=== PATIENT | female | born 1940 | race Caucasian/White ===

== ENCOUNTER → 2016-09-04 | Outpatient (CLI) | payer OTHER ==
--- NOTE | 2016-09-04 15:14 | MA ---
Bilateral Screening Digital Mammograms With iCAD Clinical Indications: Routine screening mammograms. Previous left breast carcinoma. Technique: Standard digital cephalocaudal and mediolateral oblique projections were obtained. This examination was processed by the iCAD computer-aided detection system. Comparison: 2015, 2013, 2012. Breast density: Type C. Findings: Computer-aided detection was reviewed. No suspicious cluster of microcalcifications, new d ominant densities or new architectural distortion. Architectural distortion the left breast from prev ious lumpectomy and radiation therapy. Impression: 1. ACR BI-RADS 2: Benign findings.. 2. No mammographic evidence of malignancy. Recommendation: 1. If physical exam is negative, recommend annual mammograms with next mammogram August 2017. 2. Dense mammographic pattern limits the sensitivity of mammography in this patient. If there is a cl inically palpable abnormality, recommend additional imaging with ultrasound, if clinically indicated. On License Of [facility] will send a result letter to the patient. Negative mammography should not preclude additional workup of a clinically suspicious finding. The patient's information is entered into a reminder system with a target due date for her next mammo gram.
== END ==
LOC: BRMIMAGING 13:38
DX: Z12.31 Encounter for screening mammogram for malignant neoplasm of breast (principal); Z85.3 Personal history of malignant neoplasm of breast
CPT/HCPCS: G0202

== ENCOUNTER → 2017-08-07 | Outpatient (CLI) | payer OTHER | LOC: FIMAGING 16:00 | PROVIDERS: ATTEND Emergency Medicine | DX: M25.551 Pain in right hip (principal) ==

== ENCOUNTER → 2017-09-06 | Outpatient (CLI) | payer OTHER | LOC: BRMIMAGING 13:34 | PROVIDERS: ATTEND Internal Medicine | DX: Z12.31 Encounter for screening mammogram for malignant neoplasm of breast (principal); Z85.3 Personal history of malignant neoplasm of breast ==

== ENCOUNTER → 2017-09-25 | Outpatient (CLI) | payer OTHER | LOC: FIMAGING 10:01 | PROVIDERS: ATTEND Internal Medicine Hematology & Oncology | DX: Z12.89 Encounter for screening for malignant neoplasm of other sites (principal); M54.9 Dorsalgia, unspecified; Z85.3 Personal history of malignant neoplasm of breast | CPT/HCPCS: 78306; A9503 ==

== ENCOUNTER → 2018-01-08 | Outpatient (CLI) | payer OTHER | LOC: FIMAGING 10:06 | PROVIDERS: ATTEND Physician Assistant | DX: M51.16 Intervertebral disc disorders with radiculopathy, lumbar region (principal) ==

== ENCOUNTER → 2018-05-28 | Outpatient (CLI) | payer OTHER | LOC: FIMAGING 18:12 | PROVIDERS: ATTEND Neurological Surgery | DX: M51.16 Intervertebral disc disorders with radiculopathy, lumbar region (principal); M46.96 Unspecified inflammatory spondylopathy, lumbar region; M48.061 Spinal stenosis, lumbar region without neurogenic claudication; M51.27 Other intervertebral disc displacement, lumbosacral region; G95.29 Other cord compression ==

== ENCOUNTER → 2018-09-24 | Outpatient (CLI) | payer OTHER | LOC: BRMIMAGING 08:15 | PROVIDERS: ATTEND Internal Medicine | DX: Z12.31 Encounter for screening mammogram for malignant neoplasm of breast (principal) ==

== ENCOUNTER → 2018-11-28 | Outpatient (CLI) | payer OTHER | LOC: FIMAGING 12:04 | PROVIDERS: ATTEND Internal Medicine | DX: R91.8 Other nonspecific abnormal finding of lung field (principal); I51.7 Cardiomegaly; R06.02 Shortness of breath ==

== ENCOUNTER → 2018-12-02 | Outpatient (CLI) | payer OTHER ==
[~2018-12-02] MED LIST: IOPAMIDOL (ISOVUE 370) 100 ML BTL IV ONE
== END ==
LOC: CIMAGING 11:28
PROVIDERS: ATTEND Internal Medicine
DX: R06.02 Shortness of breath (principal); J90 Pleural effusion, not elsewhere classified; I50.9 Heart failure, unspecified; E03.9 Hypothyroidism, unspecified; I25.10 Atherosclerotic heart disease of native coronary artery without angina pectoris; K44.9 Diaphragmatic hernia without obstruction or gangrene; K76.9 Liver disease, unspecified
CPT/HCPCS: 71275; Q9967; 82565-PO

== ENCOUNTER 2018-12-05 14:41 | Inpatient (IN) | payer OTHER ==
--- NOTE | 2018-12-05 15:18 | EDPHY ---
H & P Time Seen by Provider: 12/05/18 14:44 HPI/ROS: Chief complaint. Shortness of breath, abnormal echocardiogram HPI. The patient is a 78-year-old female who has had gradual onset of shortness of breath over the past month. She at times short of breath at rest. She has dyspnea on exertion. Denies chest pain. She complains of some fullness in the upper abdomen especially at night. Denies fever or cough. No unusual leg pain or swelling. She had a CT a on December 02 which showed pleural effusion, cardiomegaly, CHF, coronary artery disease. She had an echocardiogram the by Cardiology today which showed an ejection fraction 25% and apparently mitral regurgitation. She was sent to the emergency department with the plan of admission, Lasix over the weekend for diuresis and then heart catheterization next week. ROS 10 systems were reviewed and negative with the exception of the elements mentioned in the history of present illness Past Medical/Surgical History: Past medical history hypothyroid, dyslipidemia, hiatal hernia, breast cancer, diverticulosis Social History: , nonsmoker, no alcohol Smoking Status: Former smoker Physical Exam: General Appearance: Alert pleasant well-developed female mild distress. Vital signs are stable Eyes: Pupils equal and round no pallor or injection. ENT, Mouth: Mucous membranes are moist. Respiratory: There are no retractions, lungs are clear to auscultation. I do not hear wheezes, rales or rhonchi Cardiovascular: Regular rate and rhythm. Gastrointestinal: Abdomen is soft and nontender, no masses, bowel sounds normal. Neurological: Awake and alert, sensory and motor exams grossly normal. Skin: Warm and dry, no rashes. Musculoskeletal: Neck is supple nontender. Extremities symmetrical, full range of motion. Psychiatric: Patient is oriented X 3, there is no agitation. Constitutional: Initial Vital Signs Temperature (C) 36.6 C 12/05/18 14:44 Heart Rate 91 12/05/18 14:44 Respiratory Rate 16 12/05/18 14:44 Blood Pressure 133/93 H 12/05/18 14:44 O2 Sat (%) 95 12/05/18 14:44 O2 Delivery Mode Room Air Allergies/Adverse Reactions: povidone-iodine [From Betadine] Allergy (Verified 10/07/15 09:40) Rash soap [From Betadine] Allergy (Verified 10/07/15 09:40) Rash BLUE CHLORAPREP Allergy (Mild, Uncoded 02/16/10 15:18) Rash ENVIRONMENTAL Allergy (Mild, Uncoded 02/16/10 14:58) SNEEZING/NASAL CONGESTION Home Medications: Medication Instructions Recorded Aspirin [Aspirin 81mg (*)] 81 mg PO DAILY 10/07/15 Calcium Carb W/Vit D [Calcium Carb 500 mg PO HS 10/07/15 W/Vit D 500/200 (*)] Herbals/Supplements -Info Only 1 ea PO DAILY 10/07/15 [place]-3 Fatty Acids [Fish Oil 1000 1,000 mg PO HS 10/07/15 mg (*)] Atorvastatin Calcium [Lipitor 10 10 mg PO HS 05/30/18 mg (*)] Vit A/Vit C/Vit E/Zinc/Copper 1 each PO BID 05/30/18 [Preservision Tablet] Furosemide [Lasix 20 MG (*)] 20 mg PO DAILY 12/05/18 LORazepam [Ativan (*)] 0.5 mg PO HS PRN 12/05/18 Levothyroxine [Synthroid 25 mcg 12.5 mcg PO SA@0600 12/05/18 (*)] Levothyroxine [Synthroid 25 mcg 25 mcg PO SUMOTUWETHFR@0600 12/05/18 (*)] Potassium Cl [Klor-Con 20 meq (*)] 20 meq PO DAILY 12/05/18 Ranitidine HCl 150 mg PO HS PRN 12/05/18 Venlafaxine Xr [Effexor Xr] 150 mg PO DAILY 12/05/18 Medical Decision Making - Diagnostics EKG Interpretation: EKG interpreted by me shows normal sinus rhythm normal interval. LVH by voltage criteria, lateral T-wave inversion. No significant ST elevation or depression. No arrhythmia. The rate is 81 Imaging Results: Imaging Impressions Chest X-Ray 12/05/18 15:12 Impression: 1. Decrease in fluid overload/CHF pattern. 2. Prominent interstitial markings left mid lung laterally probably related to some interstitial lung disease. One-view chest x-ray interpreted by me as is consistent with congestive heart failure Procedures: IV normal saline, monitor ED Course/Re-evaluation: Patient remains stable. Patient and I discussed imaging lab EKG findings. We discussed treatment plan including recommendation for admission. She expresses understanding and agreement I consulted discussed case with hospitalist, who agrees to the admission. Patient is also seen by Dr. Gallardo for cardiology in the ED Differential Diagnosis: Patient has CHF. She has abnormal echocardiogram with decreased ejection fraction. No evidence for acute coronary syndrome. - Data Points Medications Given: Carvedilol (Coreg) 3.125 mg PO BIDMEAL [facility] Stop: 06/03/19 17:59 Last Admin: 12/05/18 18:31 Dose: 3.125 mg Furosemide (Lasix Injection) 40 mg IVP BID@0900,1500 [facility] Stop: 06/03/19 16:44 Last Admin: 12/05/18 17:03 Dose: 40 mg Lisinopril (Zestril) 10 mg PO DAILY [facility] Stop: 06/03/19 15:59 Last Admin: 12/05/18 17:03 Dose: 10 mg Spironolactone (Aldactone) 25 mg PO DAILY [facility] Stop: 06/03/19 15:59 Last Admin: 12/05/18 17:03 Dose: 25 mg Departure - Departure Disposition: [facility] Inpatient Acute Clinical Impression: Congestive heart failure Qualifiers: Heart failure type: unspecified Heart failure chronicity: unspecified Qualified Code(s): I50.9 - Heart failure, unspecified Condition: Fair
--- NOTE | 2018-12-05 15:21 | CPEKG ---
Test Reason : OPEN Blood Pressure : / mmHG Vent. Rate : 081 BPM Atrial Rate : 081 BPM P-R Int : 154 ms QRS Dur : 089 ms QT Int : 399 ms P-R-T Axes : 035 -25 -43 degrees QTc Int : 464 ms Sinus rhythm Probable left atrial enlargement LVH with secondary repolarization abnormality Confirmed by Stanley Perkins ([id number]) on 12/05/2018 3:20:34 PM Referred By: STANLEY PERKINS Confirmed By:Stanley Perkins
--- NOTE | 2018-12-05 15:27 | ECHO ---
[email or web address] [address] [address] Main: [phone] Echocardiography Examination Transthoracic Name: JOHNNY BELLE MR#: [id number] Study Date: 12/05/2018 Study Time: 01:56 PM Date of : 1940 Age: 78 year(s) Height: 139.7 cm (55 in.) Weight: 54.89 kg (121 lb.) BSA: 1.42 m2 Gender: Female Examination: Echo Contrast: Image Quality: Adequate Rhythm: Normal sinus rhythm Heart Rate: 89 bpm BP: / Indication: CHF Procedure Staff Referring Physician: Slitter Operator: Yolis Linares [facility] Reading Physician: Rj Gallardo MD Requesting Provider: Ordering Physician: Petra Marin Indication: CHF Measurements Chambers AV/MV Label Value Normal Value Label Value Normal Value LVOTd 2 cm (1.8cm - 2cm) AR PHT 0.55 s LVOT VTI 12.2 cm (18cm - 22cm) AR PHT 554 ms LVDd, 2D 4.8 cm (3.9cm - 5.3cm) AR Vena contracta 0.3 cm LVDs, 2D 4.3 cm (2.1cm - 4cm) AR Vmax 3.26 m/s IVSd, 2D 1 cm (0.6cm - 1.1cm) AV PGmean 4 mmHg LVPWd, 2D 0.9 cm BAKARI (VTI) 1.8 cm2 LVEF, BP 23 % (55% - 70%) MV E Vmax 1.12 m/s LVEF, 2D 25 % (54% - 74%) MV A Vmax 0.85 m/s LVOT PGmean 1 mmHg MV E/A 1.32 LVOT Vmean 0.42 m/s MV DT 137 ms RVDd, 2D 3.1 cm (1.9cm - 3.8cm) MV VTI 16.9 cm TAPSE 1.7 cm MVA D (continuity eq.) 2.3 cm2 LA Volume, BP 58 ml (22ml - 52ml) MV PGmax 3 mmHg LADs, 2D 4.1 cm (2.7cm - 3.8cm) MV PGmean 1 mmHg LAESV index, BP 40.8 ml/m2 MV Genoveva 3.4 cm RA Area 16 cm2 MR Vena Contracta 0.6 cm Additional Vessels MR Reg. Volume 59 ml Label Value Normal Value MR Reg. Fraction 39 % AoAsc 3.2 cm MR Vmax 4.74 m/s Patient: JOHNNY BELLE Study Date: 12/05/2018 Page 1 of 3 01:56 PM AoRoot, 2D 3.3 cm (1.4cm - 2.6cm) MR VTI 143 cm MR (ERO) 0.41 cm2 MR PISA Radius 0.9 cm MR PISA Alias V. 38.5 cm/s TV/PV Label Value Normal Value RA Pressure 5 mmHg RVSP 39 mmHg TR Pmax 34 mmHg TR Vmax 2.91 m/s PV PGmax 1 mmHg PV Vmax, Caliper 0.58 m/s (0.6m/s - 0.9m/s) Conclusions Left Ventricle: CONCLUSIONS:1)Severe reduced LV systolic function with a LVEF of 23% and global hypokinesis.2)Moderate to severe diastolic dysfunction noted.3)Low normal RV systolic function noted.4)Moderate left atrial enlargement noted.5)Aortic valve sclerosis without . Mild to moderate AI noted.6)Severe MR without MV prolapse. Mild MAC and MV leaflet thickening noted.7)Moderate TR with upper limits of normal PA pressures (PAS 39mmHg). Findings Left Ventricle: CONCLUSIONS: 1)Severe reduced LV systolic function with a LVEF of 23% and global hypokinesis. 2)Moderate to severe diastolic dysfunction noted. 3)Low normal RV systolic function noted. 4)Moderate left atrial enlargement noted. 5)Aortic valve sclerosis without . Mild to moderate AI noted. 6)Severe MR without MV prolapse. Mild MAC and MV leaflet thickening noted. 7)Moderate TR with upper limits of normal PA pressures (PAS 39mmHg). EF evaluated by EF (biplane Lomeli's). The ejection fraction, measured by Simpsons method, is 23 %. Left ventricle wall thickness is normal. Global hypokinesis. Grade III Diastolic Dysfunction. There is severe diffuse hypokinesis. Right Ventricle: Normal size right ventricle. Right ventricular systolic function is at the lower limits of normal. Left Atrium: The left atrium is moderately dilated. Right Atrium: The right atrium is borderline dilated. Mitral Valve: Severe mitral regurgitation. No mitral valve stenosis. There is moderate mitral thickening. Aortic Valve: The aortic valve is structurally normal and trileaflet. Mild to moderate aortic regurgitation is present. There is no aortic stenosis. There is aortic sclerosis present. Tricuspid Valve: Moderate tricuspid regurgitation. No tricuspid valve stenosis. Right Ventricular systolic pressure is measured at 39 mmHg. Pulmonary artery pressure is mildly increased. Pulmonic Valve: Pulmonic leaflets are structurally normal. Mild pulmonic valve regurgitation is present. Aorta: The aortic root size in 2D measures 3.3 cm. The aortic root exhibits normal size. The ascending aorta measures 3.2 cm. Ascending aorta is normal in size. Patient: JOHNNY BELLE Study Date: 12/05/2018 Page 2 of 3 01:56 PM Aorta Measurements AoRoot, 2D is 3.3 cm. Pulmonary Vein: There is systolic flow reversal in the pulmonary vein. IVC: The inferior vena cava is normal in size and course. Pericardium: No pericardial effusion. Exam Details Procedure Ordered: Echo Procedure Status: Routine study Image Quality: Adequate Facility Location: Cardiac Echo 1 (No Signature Object) Patient: JOHNNY BELLE Study Date: 12/05/2018 Page 3 of 3 01:56 PM [id number]
[2018-12-05 15:43] LABS: PLATELET COUNT 239 10^3/uL (150-400)
--- NOTE | 2018-12-05 15:46 | PDGENHP ---
History and Physical - Chief Complaint Shortness of breath - History of Present Illness Patient is a very pleasant 78-year-old female with past medical history hyperlipidemia, hypothyroid, depression and occasional GERD who was referred to the emergency room from Cardiology Clinic. The patient has been experiencing progressive dyspnea on exertion for approximately the last month. She established care with Dr. Gallardo few weeks ago and about 7 days ago started on Lasix. Despite this she has had progressive shortness of breath. About a month ago she was able to ambulate about 100 ft before becoming dyspneic. This has progressed until now she can only take a few steps before becoming winded. An echocardiogram was obtained today that showed a left ventricular ejection fraction of 23%. She was instructed to come to the emergency room for admission and treatment of her CHF. She denies any lower extremity edema but does endorse orthopnea. She denied any chest pain, cough, fevers chills or other symptoms History Information - Allergies/Home Medication List Allergies/Adverse Reactions: povidone-iodine [From Betadine] Allergy (Verified 10/07/15 09:40) Rash soap [From Betadine] Allergy (Verified 10/07/15 09:40) Rash BLUE CHLORAPREP Allergy (Mild, Uncoded 02/16/10 15:18) Rash ENVIRONMENTAL Allergy (Mild, Uncoded 02/16/10 14:58) SNEEZING/NASAL CONGESTION Home Medications: Aspirin [Aspirin 81mg (*)] 81 mg PO DAILY 10/07/15 [Last Taken 10/06/15] Calcium Carb W/Vit D [Calcium Carb W/Vit D 500/200 (*)] 500 mg PO HS 10/07/15 [ Last Taken 10/06/15] Herbals/Supplements -Info Only 1 ea PO DAILY 10/07/15 [Last Taken Unknown] [place]-3 Fatty Acids [Fish Oil 1000 mg (*)] 1,000 mg PO HS 10/07/15 [Last Taken 10/06/15] Venlafaxine Xr [Effexor Xr 75MG (*)] 75 mg PO Q2D 10/07/15 [Last Taken 10/06/15] Atorvastatin Calcium [Lipitor 10 mg (*)] 10 mg PO HS 05/30/18 [Last Taken Unknown] Levothyroxine [Synthroid 50 mcg (*)] 50 mcg PO SUMOWETHFRSA@21 05/30/18 [Last Taken Unknown] Venlafaxine HCl [Venlafaxine HCl ER] 150 mg PO Q2D 05/30/18 [Last Taken Unknown] Vit A/Vit C/Vit E/Zinc/Copper [Preservision Tablet] 1 each PO BID 05/30/18 [ Last Taken Unknown] Ranitidine HCl PRN 06/06/18 [Last Taken Unknown] Lasix 12/05/18 [Last Taken Unknown] I have personally reviewed and updated: family history, medical history, social history, surgical history - Past Medical History Additional medical history: Hyperlipidemia, hypothyroid, GERD, depression - Surgical History Additional surgical history: lumpectomy,appy,adenoids, - Family History Positive for: non-pertinent - Social History Smoking Status: Former smoker Alcohol Use: Occasionally Review of Systems Review of Systems: ROS: 10pt was reviewed & negative except for what was stated in HPI & below Physical Exam Physical Exam: Temp Pulse Resp BP Pulse Ox 36.6 C 91 16 133/93 H 95 12/05/18 14:44 12/05/18 14:44 12/05/18 14:44 12/05/18 14:44 12/05/18 14:44 Constitutional: no apparent distress, appears nourished, not in pain Eyes: PERRL, anicteric sclera, EOMI Ears, Nose, Mouth, Throat: moist mucous membranes, hearing normal, ears appear normal, no oral mucosal ulcers Cardiovascular: regular rate and rhythym, no murmur, rub, or gallop, No edema Respiratory: no respiratory distress, no rales or rhonchi, clear to auscultation Gastrointestinal: normoactive bowel sounds, soft, non-tender abdomen, no palpable masses Genitourinary: no bladder fullness, no bladder tenderness Skin: warm, normal color, no rashes or abrasions, no fluctuance, no induration, No mottled Musculoskeletal: full muscle strength, no muscle tenderness, normal joint ROM, no joint effusions Psychiatric: interacting appropriately, not anxious, not encephalopathic, thought process linear Lymph, Heme, Immunologic: no cervical LAD, no supraclavicular LAD Lab Data & Imaging Review 12/05/18 15:30 12/05/18 15:30 WBC 7.11 10^3/uL (3.80-9.50) 12/05/18 15:30 RBC 4.17 10^6/uL (4.18-5.33) L 12/05/18 15:30 Hgb 13.6 g/dL (12.6-16.3) 12/05/18 15: Hct 41.5 % (38.0-47.0) 12/05/18 15:30 MCV 99.5 fL (81.5-99.8) 12/05/18 15: MCH 32.6 pg (27.9-34.1) 12/05/18 15: MCHC 32.8 g/dL (32.4-36.7) 12/05/18 15: RDW 13.6 % (11.5-15.2) 12/05/18 15: Plt Count 239 10^3/uL (150-400) 12/05/18 15: MPV 11.1 fL (8.7-11.7) 12/05/18 15:30 Neut % (Auto) 60.7 % (39.3-74.2) 12/05/18 15:30 Lymph % (Auto) 25.2 % (15.0-45.0) 12/05/18 15:30 [place] % (Auto) 11.1 % (4.5-13.0) 12/05/18 15: Eos % (Auto) 2.3 % (0.6-7.6) 12/05/18 15: Baso % (Auto) 0.6 % (0.3-1.7) 12/05/18 15: Nucleat RBC Rel Count 0.0 % (0.0-0.2) 12/05/18 15:30 Absolute Neuts (auto) 4.32 10^3/uL (1.70-6.50) 12/05/18 15:30 Absolute Lymphs (auto) 1.79 10^3/uL (1.00-3.00) 12/05/18 15:30 Absolute Monos (auto) 0.79 10^3/uL (0.30-0.80) 12/05/18 15:30 Absolute Eos (auto) 0.16 10^3/uL (0.03-0.40) 12/05/18 15:30 Absolute Basos (auto) 0.04 10^3/uL (0.02-0.10) 12/05/18 15:30 Absolute Nucleated RBC 0.00 10^3/uL (0-0.01) 12/05/18 15:30 Immature Gran % 0.1 % (0.0-1.1) 12/05/18 15:30 Immature Gran # 0.01 10^3/uL (0.00-0.10) 12/05/18 15:30 Assessment & Plan Assessment: 78-year-old female with no significant past medical history referred from Cardiology Clinic after was noted that she had an ejection fraction of 23%. CHF- BNP elevated over 3000, I reviewed the echocardiogram obtained today which shows a left ventricular ejection fraction at 23% with severe global hypokinesis , a low normal right ventricular ejection fraction, severe mitral regurg and moderate tricuspid regurg. CXR today Case was discussed with cardiology . -Lasix 40 mg IV twice daily -start Coreg 3.125 mg twice a day -start lisinopril 10 mg daily -start Aldactone S 25 mg daily -daily weights strict eyes and nose -likely left and right heart catheterization on Saturday -telemetry Hyperlipidemia- continue atorvastatin, will check fasting lipid panel in the morning. Depression-on venlafaxine which should be continued GERD- p.r.n. Ranitidine Hypothyroid- continue home Synthroid but check of TSH Prophylaxis- SCDs and low-molecular weight heparin Fluids- none Electrolytes- WNL Nutrition- Cardiac Cor- Full Dispo- inpatient for Acute CHF.
--- NOTE | 2018-12-05 15:49 | SOAPPROG ---
S[facility] Progress Note Assessment/Plan: Assessment: CHF consultation performed and dictated. 78 y/o woman with no previous cardiac problems or cardiac testing who has not been feeling well for 1-2 months with ZAYAS at one block, leg edema and three pillow orthopnea. Started on PO Lasix 20mg daily a week ago and has lost six lbs. Was getting out-pt echo today which showed LVEF 23% with severe global hypokinesis, low normal RVEF, moderate LAE, mild -moderate AI, severe MR without MV prolapse and moderate TR with estimated PAS 39mmHg. On exam she is hypervolemic with JVP to 10-11cm. She has a history of left breast cancer in 2009 treated with lumpectomy and XRT to left chest and some type of chemo but Adriamycin does not sound familar to her. REC: 1)admit to [facility] for new onset systolic CHF and volume overload. 2)lasix 40mg IV BID 3)start Coreg 3.125mg PO BID 4)start Lisinopril 10mg PO qam. 5)start Aldactone 25mg PO qam. 6)continue IV diuresis thru weekend then 7)L/R cardiac cath on Saturday Thanks. Will follow with you. 12/05/18 15:45 Objective: Vital Signs Temp Pulse Resp BP Pulse Ox 36.6 C 91 16 133/93 H 95 12/05/18 14:44 12/05/18 14:44 12/05/18 14:44 12/05/18 14:44 12/05/18 14:44 Laboratory Results 12/05/18 15:30 ICD10 Worksheet Patient Problems: Problems Problem Status Onset Diverticulitis of sigmoid colon Acute GI bleed Acute
[2018-12-05] MEDS ORDERED: ONDANSETRON DISINTEGRATING 4 MG TAB PO PRN (15:55)
[2018-12-05] MEDS ORDERED: ACETAMINOPHEN 325 MG TAB PO PRN (15:55)
[2018-12-05] MEDS ORDERED: ONDANSETRON 4 MG/2 ML VIAL IVP PRN (15:55)
[2018-12-05 16:09] LABS: INR 1.08 (0.83-1.16); PROTIME(PATIENT) 13.6 SEC (12.0-15.0)
[2018-12-05] MEDS: LISINOPRIL 10 MG TAB PO SCH (17:03)
[2018-12-05] MEDS: FUROSEMIDE 40 MG/4 ML VIAL IVP SCH (17:03)
[2018-12-05] MEDS: SPIRONOLACTONE 25 MG TAB PO SCH (17:03)
[2018-12-05] MEDS ORDERED: MELATONIN 3 MG TAB PO PRN (17:18)
--- NOTE | 2018-12-05 17:19 | PDMN ---
Medical Necessity Medical necessity: [facility] M182 GIB lower High-risk low platelet count- plt undetectable, H/H 4.0/13/3 2 units PRBC transfused and 10 pack of plt. ordered stat. anticipate > 2 MN ongoing med nec care- further monitoring, eval and tx.
[2018-12-05] MEDS: CARVEDILOL 3.125 MG TAB PO SCH (18:31)
[2018-12-05] MEDS ORDERED: LORazepam 0.5 MG TAB PO PRN (19:16)
[2018-12-05] MEDS: FAMOTIDINE 20 MG TAB PO SCH (21:17)
[2018-12-05] MEDS: ATORVASTATIN CALCIUM 10 MG TAB PO SCH (21:17)
[2018-12-06 04:50] LABS: PLATELET COUNT 221 10^3/uL (150-400)
[2018-12-06] MEDS ORDERED: LEVOTHYROXINE 25 MCG TAB PO SCH (06:00)
--- NOTE | 2018-12-06 07:07 | PDCARPN ---
Cardiology Progress Note Chief Complaint: Patient doing well this morning. Good night sleep - first in a long time Assessment/Plan: Assessment: Patient is a 78 y/o female with history of breast cancer (about 10 years ago), HLP, GERD, depression, and hypothyroidism, who presented to PCP with progressive dyspnea. Ambulation ability has also dropped off significantly. Reports of patient being seen by Dr. Sonam Gallardo (could not find outpatient documentation). Echocardiography with new, severe reduction in systolic function (20-25%) and severe MR, mod TR. Aggressive medication management was started with IV diuresis, beta blockers (Coreg), ACEi (lisinopril), and spironolactone therapies. Overnight, the patient states that she is feeling better. No lower extremity swelling had ever been noted (possibly gut edema). Modest BNP elevation (~2000), without cardiac biomarker elevation (normal troponin). Plan: (1) Optimize medical therapy over the weekend - Coreg, Lisinopril, and spironolactone, to continue (2) Would continue IV diuresis and monitor electrolytes and renal function (3) Continue therapy on thyroid supplementation (4) Continue statins with annual assessment of cholesterol and LFTs (5) Likely right, left, and COR angiography next week Patient was in agreement with these plans. Subjective: No active cardiovascular complaints Objective: Vital Signs (8 Hrs) Temp Pulse Resp BP Pulse Ox 12/06/18 04:00 36.8 C 75 18 108/67 94 Intake/Output (24 Hrs) 12/05/18 12/06/18 12/07/18 05:59 05:59 05:59 Intake Total 150 Output Total 1200 Balance -1050 Intake: Oral (ml) 150 Output: Urine (ml) 1200 Toilet 1200 Other: Weight 54.8 kg Result Diagrams: 12/06/18 04:20 12/06/18 04:20 EKG: sinus rhythm with LAE, LVH and ST/T wave changes (query LVH) Telemetry: sinus rhythm at 65-70 bpm Echocardiogram: severe reduction in LVEF (~20%), severe MR, mod TR, mild mod AI, grade II diastolic dysfunction. - Physical Exam Constitutional: WDWN, healthy appearing, no apparent distress Eyes: PERRL, EOMI Ears, Nose, Mouth, Throat: moist mucous membranes Cardiovascular: regular rate and rhythm, systolic murmur, pulses symmetric bilat , No jugular vein distention Peripheral Pulses: 2+: dorsalis-pedis (R), dorsalis-pedis (L) Respiratory: clear to auscultate bilat, no crackles, no wheezes Gastrointestinal: normoactive bowel sounds Skin: no rashes, no edema Musculoskeletal: no muscular tenderness Neurologic: AAOx3, CN II-XII grossly intact Psychiatric: cooperative, interactive, following commands ICD10 Worksheet Patient Problems: Problems Problem Status Onset Congestive heart failure Acute Diverticulitis of sigmoid colon Acute GI bleed Acute
[2018-12-06] MEDS ORDERED: FAMOTIDINE 20 MG TAB PO PRN (09:30)
[2018-12-06] MEDS: CARVEDILOL 3.125 MG TAB PO SCH ×2 (09:39→18:04)
[2018-12-06] MEDS: FUROSEMIDE 40 MG/4 ML VIAL IVP SCH ×2 (09:40→15:19)
[2018-12-06] MEDS: SPIRONOLACTONE 25 MG TAB PO SCH (09:40)
[2018-12-06] MEDS: ASPIRIN 81 MG CHEWABLE TAB PO SCH (09:40)
[2018-12-06] MEDS: LISINOPRIL 10 MG TAB PO SCH (09:40)
[2018-12-06] MEDS: ENOXAPARIN 40 MG/0.4 ML SYR SC SCH (09:40)
[2018-12-06] MEDS: VENLAFAXINE XR 150 MG CAP PO SCH (09:40)
--- NOTE | 2018-12-06 10:37 | HOSPPROG ---
Hospitalist Progress Note Assessment/Plan: Acute sCHF exacerbation, LVEF 23% AI, mild-mod MR, severe TR, mod HLD Hypothyroid Depression GERD Constipation -Bowel prn meds. +fiber, prune juice. -monitor for arrhythmias. -cardiac meds- carvedilol, lisinopril, spironolactone. -Fluid restriction and diuresis- furosemide 40mg QD. -Monitor electrolytes/renal function. -Cardiology planning for L/R cath Saturday. VTE ppx- Lovenox. Code status - full. Subjective: Pt c/o constipation but otherwise feels well. Objective: Vital Signs Temp Pulse Resp BP Pulse Ox 36.7 C 85 17 107/70 94 12/06/18 07:51 12/06/18 09:38 12/06/18 07:51 12/06/18 09:38 12/06/18 07:51 Laboratory Results 12/06/18 04:20 12/06/18 04:20 12/05/18 12/06/18 12/07/18 05:59 05:59 05:59 Intake Total 150 Output Total 1200 200 Balance -1050 -200 PT 13.6 SEC (12.0-15.0) 12/05/18 15:30 INR 1.08 (0.83-1.16) 12/05/18 15:30 - Time Spent With Patient Time Spent with Patient: greater than 35 minutes Time Spent with Patient: Greater than 35 minutes spent on this patients care, greater than 50% of time spent counseling, educating, and coordinating care regarding the above mentioned plan. - Physical Exam Constitutional: no apparent distress, appears nourished Eyes: EOMI, No scleral injection Ears, Nose, Mouth, Throat: moist mucous membranes, hearing normal Cardiovascular: regular rate and rhythym, no murmur, rub, or gallop, systolic murmur Respiratory: no respiratory distress, no rales or rhonchi Gastrointestinal: normoactive bowel sounds, No distension Genitourinary: No velásquez in urethra Skin: warm, normal color Neurologic: AAOx3, CN II-XII Intact Psychiatric: interacting appropriately, not anxious ICD10 Worksheet Patient Problems: Problems Problem Status Onset Congestive heart failure Acute Diverticulitis of sigmoid colon Acute GI bleed Acute
[2018-12-06] MEDS: FAMOTIDINE 20 MG TAB PO SCH (10:52)
[2018-12-06] MEDS ORDERED: BISACODYL 10 MG SUPP PR PRN (14:24)
[2018-12-06] MEDS ORDERED: LACTULOSE 20 GM/30 ML UDCUP PO PRN (14:24)
[2018-12-06] MEDS ORDERED: POLYETHYLENE GLYCOL 3350 17 GM PKT PO PRN (14:24)
[2018-12-06] MEDS ORDERED: MAGNESIUM HYDROXIDE 30 ML UDCUP PO PRN (14:24)
--- NOTE | 2018-12-06 14:46 | ASMTCMCOM ---
CM Note CM Note Notes: 12/06/2018 Case Management Note Pt admitted for CHF. Discussed in rounds. Met w/pt and Rosita [phone]. They have 4 local children, son Oleg [phone] is listed on the board. PCP is Dr. Marin; Dr. Whitney is car body inspector. There are no identified case management d/c needs. Pt has not required home care or SNF rehab in the past. There are no therapy evals ordered today. Case Management d/c poc: independent with follow up as directed. Case Management available if needs change. Date Signed: 12/06/2018 02:46 PM Electronically Signed By:Niesha Martinez RN
[2018-12-06] MEDS: PSYLLIUM METAMUCIL 1 PKT PO SCH (15:19)
[2018-12-06] MEDS: ATORVASTATIN CALCIUM 10 MG TAB PO SCH (21:20)
[2018-12-07] MEDS: LEVOTHYROXINE 25 MCG TAB PO SCH (06:04)
--- NOTE | 2018-12-07 08:26 | PDCARPN ---
Cardiology Progress Note Chief Complaint: Patient feeling well today. Good sleep overnight. Assessment/Plan: Assessment: 12-07-18 Patient doing well today. She again slept well overnight. No active cardiovascular complaints of chest pains or pressure. No PND or orthopnea. In general, she states that she is feeling better since she was admitted to the hospital. Breathing has been without effort. Tolerance to prescribed medications has been good. 12-06-18 Patient is a 78 y/o female with history of breast cancer (about 10 years ago), HLP, GERD, depression, and hypothyroidism, who presented to PCP with progressive dyspnea. Ambulation ability has also dropped off significantly. Reports of patient being seen by Dr. Sonam Gallardo (could not find outpatient documentation). Echocardiography with new, severe reduction in systolic function (20-25%) and severe MR, mod TR. Aggressive medication management was started with IV diuresis, beta blockers (Coreg), ACEi (lisinopril), and spironolactone therapies. Overnight, the patient states that she is feeling better. No lower extremity swelling had ever been noted (possibly gut edema). Modest BNP elevation (~2000), without cardiac biomarker elevation (normal troponin). Plan: (1) We will assess the cath schedule tomorrow - would like to have patient NPO after midnight - dose lovenox today, but hold in am - probable R/L/COR tomorrow (2) Continue therapy on Coreg, Lisinopril, and spironolactone as at present given newly noted severe reduction in LVEF with severe MR (3) Thyroid supplementation to continue (4) Statins for HLP to continue (5) AM labs (CBC, CMP, INR) pre cath is recommended Patient was in agreement with these plans. Subjective: No cardiovascular complaints Objective: Vital Signs (8 Hrs) Temp Pulse Resp BP Pulse Ox 12/07/18 07:08 36.6 C 76 16 112/79 99 12/07/18 04:00 36.4 C 70 17 108/68 98 Intake/Output (24 Hrs) 12/06/18 12/07/18 12/08/18 05:59 05:59 05:59 Intake Total 150 800 Output Total 1200 1100 Balance -1050 -300 Intake: Oral (ml) 150 800 Output: Urine (ml) 1200 1100 Toilet 1200 1100 Other: Weight 54.8 kg 53.9 kg Number of Voids Toilet 1 Number of Stools Toilet 1 Result Diagrams: 12/06/18 04:20 12/07/18 03:02 Telemetry: normal sinus rhythm at 80 bpm Echocardiogram: LVEF 23% with severe MR - Physical Exam Constitutional: WDWN, healthy appearing, no apparent distress Eyes: PERRL, EOMI Ears, Nose, Mouth, Throat: moist mucous membranes Cardiovascular: regular rate and rhythm, systolic murmur, pulses symmetric bilat , No jugular vein distention Peripheral Pulses: 2+: dorsalis-pedis (R), dorsalis-pedis (L) Respiratory: clear to auscultate bilat, no crackles, no wheezes Gastrointestinal: normoactive bowel sounds Skin: no rashes, no edema Musculoskeletal: no muscular tenderness, no joint effusions Neurologic: AAOx3, CN II-XII grossly intact Psychiatric: cooperative, interactive, following commands ICD10 Worksheet Patient Problems: Problems Problem Status Onset Congestive heart failure Acute Diverticulitis of sigmoid colon Acute GI bleed Acute
[2018-12-07] MEDS ORDERED: DIAZEPAM 5 MG TAB PO ONE (08:33)
[2018-12-07] MEDS ORDERED: NITROGLYCERIN 0.4 MG BTL SL PRN (08:33)
[2018-12-07] MEDS ORDERED: TEMAZEPAM 15 MG CAP PO PRN (08:33)
[2018-12-07] MEDS ORDERED: diphenhydrAMINE 25 MG CAP PO ONE (08:33)
[2018-12-07] MEDS ORDERED: NS 1,000 ML IV SCH (08:45)
[2018-12-07] MEDS: CARVEDILOL 3.125 MG TAB PO SCH ×2 (09:48→18:14)
[2018-12-07] MEDS: FUROSEMIDE 40 MG/4 ML VIAL IVP SCH ×2 (09:48→15:56)
[2018-12-07] MEDS: ASPIRIN 81 MG CHEWABLE TAB PO SCH (09:48)
[2018-12-07] MEDS: VENLAFAXINE XR 150 MG CAP PO SCH (09:48)
[2018-12-07] MEDS: LISINOPRIL 10 MG TAB PO SCH (09:49)
[2018-12-07] MEDS: SPIRONOLACTONE 25 MG TAB PO SCH (09:49)
[2018-12-07] MEDS: ENOXAPARIN 40 MG/0.4 ML SYR SC SCH (09:50)
[2018-12-07] MEDS: PSYLLIUM METAMUCIL 1 PKT PO SCH (09:57)
--- NOTE | 2018-12-07 14:46 | HOSPPROG ---
Hospitalist Progress Note Assessment/Plan: Hypotension, asymptomatic. Acute sCHF exacerbation, LVEF 23% AI, mild-mod MR, severe TR, mod HLD Hypothyroid Depression GERD Constipation -Bowel prn meds. +fiber, prune juice. -monitor for arrhythmias. -cardiac meds- carvedilol, lisinopril, spironolactone. -Fluid restriction and diuresis- furosemide 40mg QD. Holding current dose of diuretic for current hypotension. -Monitor electrolytes/renal function. -Cardiology planning for L/R cath Saturday. VTE ppx- Lovenox. Code status - full. Subjective: Today pt feels well, denies swelling or difficulty breathing or dizzy/lightheadedness. She walked outside w/ her family w/o problems. Objective: Vital Signs Temp Pulse Resp BP Pulse Ox 36.6 C 80 16 103/73 93 12/07/18 11:13 12/07/18 11:13 12/07/18 11:13 12/07/18 11:13 12/07/18 11:13 Laboratory Results 12/06/18 04:20 12/07/18 03:02 12/06/18 12/07/18 12/08/18 05:59 05:59 05:59 Intake Total 150 800 Output Total 1200 1100 Balance -1050 -300 PT 13.6 SEC (12.0-15.0) 12/05/18 15:30 INR 1.08 (0.83-1.16) 12/05/18 15:30 - Physical Exam Constitutional: no apparent distress, appears nourished Eyes: EOMI, No scleral injection Ears, Nose, Mouth, Throat: moist mucous membranes, hearing normal Respiratory: no respiratory distress Gastrointestinal: No distension Genitourinary: No velásquez in urethra Skin: warm, normal color Neurologic: AAOx3, CN II-XII Intact Psychiatric: interacting appropriately, not anxious ICD10 Worksheet Patient Problems: Problems Problem Status Onset Congestive heart failure Acute Diverticulitis of sigmoid colon Acute GI bleed Acute
[2018-12-07] MEDS: ATORVASTATIN CALCIUM 10 MG TAB PO SCH (20:30)
[2018-12-08 04:32] LABS: PLATELET COUNT 205 10^3/uL (150-400)
[2018-12-08 04:49] LABS: INR 1.05 (0.83-1.16); PROTIME(PATIENT) 13.3 SEC (12.0-15.0)
[2018-12-08] MEDS: LEVOTHYROXINE 25 MCG TAB PO SCH (08:45)
[2018-12-08] MEDS ORDERED: diphenhydrAMINE 25 MG CAP PO ONE ×2 (09:00→09:32)
[2018-12-08] MEDS ORDERED: DIAZEPAM 5 MG TAB PO ONE (09:00)
[2018-12-08] MEDS ORDERED: ASPIRIN EC 325 MG TAB PO ONE (09:32)
[2018-12-08] MEDS ORDERED: FAMOTIDINE 20 MG TAB ONE (09:32)
[2018-12-08] MEDS ORDERED: DIAZEPAM 5 MG TAB ONE (09:33)
--- NOTE | 2018-12-08 09:57 | PDCARPN ---
Cardiology Progress Note Chief Complaint: Patient without complaints this morning Assessment/Plan: Assessment: 12-08-18 No events overnight. Hypotension was appreciated about 1800 last night, and PM antihypertensive therapy as well as IV diuretics were held. Medications were held again this morning given blood pressures that were noted. No chest pains or pressure. Good sleep. Dyspnea is improved in comparison to admission. No PND or orthopnea. was at bedside this morning. Risks and benefits of the pending invasive procedure were discussed with the patient and . 12-07-18 Patient doing well today. She again slept well overnight. No active cardiovascular complaints of chest pains or pressure. No PND or orthopnea. In general, she states that she is feeling better since she was admitted to the hospital. Breathing has been without effort. Tolerance to prescribed medications has been good. 12-06-18 Patient is a 78 y/o female with history of breast cancer (about 10 years ago), HLP, GERD, depression, and hypothyroidism, who presented to PCP with progressive dyspnea. Ambulation ability has also dropped off significantly. Reports of patient being seen by Dr. Sonam Gallardo (could not find outpatient documentation). Echocardiography with new, severe reduction in systolic function (20-25%) and severe MR, mod TR. Aggressive medication management was started with IV diuresis, beta blockers (Coreg), ACEi (lisinopril), and spironolactone therapies. Overnight, the patient states that she is feeling better. No lower extremity swelling had ever been noted (possibly gut edema). Modest BNP elevation (~2000), without cardiac biomarker elevation (normal troponin). Plan: (1) R/L.COR for this morning (2) Thyroid supplementation to continue (3) Lovenox was dosed last night and held this moring (4) Statins should continue for HLP, and maintain annual assessment of cholesterol and LFT (5) Further recommendations after diagnostic testing has been completed. Subjective: No cardiovascular complaints Objective: Vital Signs (8 Hrs) Temp Pulse Resp BP Pulse Ox 12/08/18 08:00 36.6 C 75 16 106/68 97 12/08/18 03:12 36.6 C 81 17 98/59 L 97 Intake/Output (24 Hrs) 12/07/18 12/08/18 12/09/18 05:59 05:59 05:59 Intake Total 800 1125 Output Total 1100 1200 Balance -300 -75 Intake: Oral (ml) 800 1125 Output: Urine (ml) 1100 1200 Toilet 1100 1200 Other: Weight 54.204 kg Number of Voids Toilet 1 Number of Stools Toilet 1 Result Diagrams: 12/08/18 03:09 12/08/18 03:09 Telemetry: normal sinus rhythm - Physical Exam Constitutional: WDWN, healthy appearing, no apparent distress Eyes: PERRL, EOMI Ears, Nose, Mouth, Throat: moist mucous membranes Cardiovascular: regular rate and rhythm, systolic murmur, pulses symmetric bilat , No jugular vein distention Peripheral Pulses: 2+: dorsalis-pedis (R), dorsalis-pedis (L) Respiratory: clear to auscultate bilat, no crackles, no wheezes Gastrointestinal: normoactive bowel sounds Skin: no edema Musculoskeletal: no muscular tenderness Neurologic: AAOx3, CN II-XII grossly intact Psychiatric: cooperative, interactive, following commands ICD10 Worksheet Patient Problems: Problems Problem Status Onset Congestive heart failure Acute Diverticulitis of sigmoid colon Acute GI bleed Acute
--- NOTE | 2018-12-08 09:58 | PDPROPOC ---
Sedation Plan of Care Sedation Plan of Care: vital signs stable, mental status noted, patient educated of risks, benefits, alternatives, patient can tolerate sedation ASA Classification: ASA 2 Planned drugs: midazolam Mallampati Score: Class 1 Mallampati Reference Image: Patient passed 3-3-2 rule?: Yes
[2018-12-08] MEDS ORDERED: LIDOCAINE 1% 300 MG/30 ML SDV ONE (10:24)
[2018-12-08] MEDS ORDERED: fentaNYL 100 MCG/2 ML INJ ONE (10:24)
[2018-12-08] MEDS ORDERED: MIDAZOLAM 2 MG/2 ML VIAL ONE (10:25)
[2018-12-08] MEDS ORDERED: IOPAMIDOL (ISOVUE-370) 150 ML BTL IV ONE (10:25)
--- NOTE | 2018-12-08 10:44 | CPEKG ---
Test Reason : OPEN Blood Pressure : / mmHG Vent. Rate : 077 BPM Atrial Rate : 076 BPM P-R Int : 156 ms QRS Dur : 091 ms QT Int : 415 ms P-R-T Axes : 040 -25 190 degrees QTc Int : 470 ms Sinus rhythm LVH with secondary repolarization abnormality Confirmed by Colby Magallon ([id number]) on 12/08/2018 10:43:43 AM Referred By: Som Meyers Confirmed By:Colby Magallon
--- NOTE | 2018-12-08 11:36 | PDDXCAT ---
Diagnostic Cath Note - . Date: 12/08/18 Graduate Student: Ap Indication: other (severe MR with newly appreciated severe reduction in LVEF) - Procedure Access: right groin Procedure: left heart catheterization, coronary angiography, left ventriculogram , right heart catheterization - Materials Left Heart Cath size: 6F Left Heart Cath materials: standard multipack (JL4, JR4, pigtail) Right Heart Cath size: 7F Right Heart Cath materials: PWP catheter - Findings-Left Heart Catheterization LM: Short, bifurcation into the LAD and LCX vessels. No luminal irregularities were noted. LAD: Medium diameter vessel with one principal diagonal (D1). No appreciable luminal irregularities were noted. LCX: Small diameter vessel with small branch vessel (OM1). No signficant luminal irregularities were noted. RCA: Large, dominant vessel with supply to the PDA and ROXANNA. In the mid portion of the RCA, there is a 20% luminal irregularity (smooth). EDP: 20 mm Hg LVEF: 20% Wall motion: Severe, global hypokinesis was noted - Findings-Right Heart Catheterization RA: 2 RV: 27/1 PA: 21/10 (13) PAOP: 6 AO: 105/58 CO: 2.3 l/min CI: 1.63 l/min/m^2 Complications: none Estimated blood loss: <50ml Closure method: Angioseal Assessment: Patient is a 78 y/o female with newly appreciated severe MR and severe reduction in LVEF (20%). By angiography, no critical lesions were identified (smooth, mRCA lesion of 20%). Ongoing, severe reduction in LVEF was noted (global hypokinesis). Plan: CT surgery and structural cardiology assessment of the valve pathology and systolic dysfunction is pending Intervention: none Patient Problems: Problems Problem Status Onset Congestive heart failure Acute Diverticulitis of sigmoid colon Acute GI bleed Acute
[2018-12-08] MEDS ORDERED: ATROPINE SULFATE 1 MG/10 ML SYR IVP PRN (12:25)
[2018-12-08] MEDS: CARVEDILOL 3.125 MG TAB PO SCH ×2 (13:46→18:08)
[2018-12-08] MEDS: FUROSEMIDE 40 MG/4 ML VIAL IVP SCH ×2 (14:07→17:43)
[2018-12-08] MEDS: LISINOPRIL 10 MG TAB PO SCH (14:07)
[2018-12-08] MEDS: SPIRONOLACTONE 25 MG TAB PO SCH (14:07)
[2018-12-08] MEDS: VENLAFAXINE XR 150 MG CAP PO SCH (15:46)
[2018-12-08] MEDS: ASPIRIN 81 MG CHEWABLE TAB PO SCH ×2 (15:46→15:47)
[2018-12-08] MEDS: PSYLLIUM METAMUCIL 1 PKT PO SCH (15:46)
--- NOTE | 2018-12-08 16:14 | HOSPPROG ---
Hospitalist Progress Note Assessment/Plan: Acute sCHF exacerbation, LVEF 20% by cath - IV Lasix held today due to hypotension with aggressive diuresis over past few days. Low EF may be related to severe MR, see below. No significant coronary lesions on cath today. -resume po lasix in am, cont spironolactone -cont BB, AMNA -needs home O2 Severe MR - CV surgery to consult Hyperlipidemia - cont statin Hypothyroid - cont levothyroxine Depression Constipation - bowel protocol Full code DVT PPLX - Lovenox held today for cath, resume in am Dispo - pt and strongly desire for discharge and I've agreed to this with close f/u with cardiology, CV surgery and with home O2 Objective: Vital Signs Temp Pulse Resp BP Pulse Ox 36.7 C 76 16 92/70 L 96 12/08/18 13:40 12/08/18 13:40 12/08/18 13:40 12/08/18 13:40 12/08/18 13:40 Laboratory Results 12/08/18 03:09 12/08/18 03:09 12/07/18 12/08/18 12/09/18 05:59 05:59 05:59 Intake Total 800 1125 Output Total 1100 1200 Balance -300 -75 PT 13.3 SEC (12.0-15.0) 12/08/18 03:09 INR 1.05 (0.83-1.16) 12/08/18 03:09 ICD10 Worksheet Patient Problems: Problems Problem Status Onset Congestive heart failure Acute Diverticulitis of sigmoid colon Acute GI bleed Acute
--- NOTE | 2018-12-08 16:46 | PDHOMEO2F ---
Home Oxygen Face to Face Home Orders: I certify that a physician or a nurse practitioner or physician's assistant bookkeeper has had a [id number] encounter with this patient on the date of this order due to the diagnosis listed, which relates to the primary reason the patient requires home oxygen. Alternative treatments have been tried, or considered, and deemed ineffective. It is anticipated that supplemental oxygen will result in improvement with treatment. Home oxygen qualifying diagnosis: chronic HF SpO2 on room air (%): 86 Frequency of home oxygen needed: continuous Home oxygen liters per minute: 2 LPM Home oxygen delivery device: mask Concentrator: Yes E-tanks for mobility and back up: Yes If ordering portable O2, is the patient mobile in the home?: Yes I certify that, based on these findings, the home oxygen is medically necessary for this patient for the following length of time. Length of time home oxygen needed: 99 years
[2018-12-08 18:09] VITALS: BP 108/62
--- NOTE | 2018-12-08 21:29 | GDS ---
[f rep st] DISCHARGE SUMMARY DISCHARGE DIAGNOSES: 1. Acute exacerbation of systolic heart failure. 2. Nonischemic cardiomyopathy with ejection fraction of 20%. 3. Severe mitral regurgitation. 4. Hyperlipidemia. 5. Hypothyroidism. CONSULTANTS: 1. Dr. Rj Gallardo, cardiology. 2. Dr. Myron De Souza, cardiology. 3. Dr. David Altamirano, cardiovascular surgery. HISTORY: For details, please see history and physical dated December 05, 2018. In brief, the patient is a 78-year-old female with history of hyperlipidemia and hypothyroidism, presents to the emergency depa rtment with shortness of breath. She recently underwent an outpatient workup for progressive dyspnea on exertion, was started on Lasix 1 week prior to admission. On the day of admission, an echocardio gram was obtained that showed an ejection fraction of 23%. At that point, she was admitted to the [facility] for further management. HOSPITAL COURSE: The patient was admitted to the med/surg unit. Her BNP was elevated over 3000, and as above, her echocardiogram showed an ejection fraction of 23% with severe global hypokinesis, as w ell as severe mitral regurgitation and moderate tricuspid regurgitation. Cardiology consult was obta ined. She was started on aggressive IV diuretic therapy with Lasix. In addition, she was started on Coreg, lisinopril, and Aldactone. She reportedly had already lost 6 pounds after her week of oral L asix therapy. She diuresed negative for several days and eventually had a low blood pressure of 80/5 0. She was completely asymptomatic with this. Her IV diuretics were held for a day, and she will tr ansition back to oral Lasix upon discharge. In addition, her lisinopril is halved from 10 mg to 5 mg daily. This could be up titrated again in the outpatient setting if her blood pressure tolerates it . After her cardiac catheterization was negative for any critical coronary lesions, cardiovascular s urgery consult was obtained, and the patient was evaluated by Dr. David Altamirano. There was some conside ration for valve surgery, and she will have close outpatient followup with Dr. Altamirano to determine th e next step. I also advised her she should have close followup this week with Dr. Gallardo at [facility]. It was felt by the cardiology service that she was stable for discharge, and her roger rushing, who is an anesthesiologist, strongly wishes to take her home. In addition, the patient wishes to discharge home. DISPOSITION: Patient is discharged home in stable condition with home oxygen. FOLLOWUP: 1. Dr. Rj Gallardo, [facility] in 2 to [address] Ayan Altamirano, cardiovascular surgery. 3. Dr. Petra Marin, primary care. DISCHARGE MEDICATIONS: Please see [facility] for completed outpatient medication list. Medications on discharge include Coreg 3.125 mg p.o. b.i.d., #60, no refills; lisinopril 5 mg p.o. daily, #30, no r efills; spironolactone 25 mg p.o. daily, #30, no refills. She will continue all her other outpatient medications as prescribed, including aspirin 81 mg daily, atorvastatin 10 mg daily, Lasix 20 mg valdo y, potassium 20 mEq daily, Effexor XR 150 mg daily, levothyroxine 25 mcg daily except Saturday when s he takes 12.5 mcg, ranitidine 150 mg p.o. h.s. , Ativan 0.5 mg p.o. h.s. p.r.n. /[id number]/MODL
--- NOTE | 2018-12-08 23:20 | GCON ---
[f rep st] CONSULTATION STRUCTURAL HEART CONSULT CHIEF COMPLAINT: Shortness of breath. HISTORY OF PRESENT ILLNESS: This is a 78-year-old female with history of breast cancer, GERD, hypoth yroidism, who presented to her outpatient physician with progressive dyspnea. The patient was sent t o the emergency room where she was found to have a dilated cardiomyopathy with severe mitral regurgit ation on surface echo, degenerative/functional abnormalities of her mitral valve. The patient was st arted with IV diuresis, beta blockers, AMNA inhibitors, and spironolactone. Since admission, the padmini ent has done much better, diuresing very effectively. She underwent a right and left heart catheteri zation which did not show any significant coronary abnormality. Currently, the patient is resting qu ietly. Blood pressure and heart rate are stable. PAST MEDICAL HISTORY: Significant for hyperlipidemia, GERD, depression, hypothyroidism, breast cance r. SOCIAL HISTORY: She is . No smoking, no drinking. FAMILY HISTORY: Noncontributory. REVIEW OF SYSTEMS: Patient currently denies any visual changes. No headache. No neck pain. No ear pain. No throat pain. No nasal pain. No chest pain. No abdominal pain. Minimal shortness of joanne ath with exertion. No lower extremity edema. PHYSICAL EXAM: VITAL SIGNS: Afebrile, 96. Blood pressure 92/70, heart rate 72, respiratory rate 12 , sat 95% on room air. HEENT: Pupils equal and reactive to light and accommodation. Extraocular mo vements intact. CARDIOVASCULAR: Regular rate and rhythm, S1 and S2. A 2/[address] st at the apex. LUNGS: Clear to auscultation bilaterally. ABDOMEN: Soft, nontender. No guarding. EXTREMITIES: No clubbing, no cyanosis, no edema. NEUROLOGIC: The patient is alert and oriented x 3. LABORATORY DATA: Values currently show a hemoglobin of 14.5, platelet count 205, creatinine 0.8. ASSESSMENT AND PLAN: Shortness of breath/severe mitral regurgitation. At this time, the patient patti ears to be much better compensated than her initial presentation, as she has diuresed significantly a nd is much less short of breath. Would continue with aggressive medical therapy and have her follow up with Dr. Gallardo, our heart failure expert, as an outpatient. If the patient should have worsening symptoms of shortness of breath and severe mitral regurgitation despite optimal medical therapy, she will be evaluated by the CT surgical service for possible mitral valve repair/replacement. If the gonzalo gonzalez is deemed to be at a higher risk of complications for an open-heart procedure, then certainly tsering zhou can discuss with her and her family about a MitraClip procedure. We will discuss this further with Dr. Altamirano, who had evaluated the patient earlier in the day. The patient will be an anticipated to be discharged in the next 24 hours and follow up in our office in 1-2 weeks' time. We will continue to follow her closely on an outpatient basis. /[id number]/MODL
--- NOTE | 2018-12-09 00:10 | GCON ---
[f rep st] CONSULTATION DATE OF CONSULTATION: 12/08/2018 REASON FOR CONSULTATION: Severe mitral regurgitation with markedly diminished left ventricular funct ion and congestive heart failure. HISTORY: I was asked by Dr. De Souza to see this patient who is a very pleasant 78-year-old woman admi tted 3 days ago with new-onset acute congestive heart failure. She did note that she has had some de mcnamara in her functional status over the last couple of months, but it has been rather insidious, but she otherwise has led an active life. On the day of admission, she was experiencing acute shortness of breath and was admitted to the hospital in congestive heart failure. Echocardiography reveals mar kedly diminished left ventricular function and severe mitral regurgitation. Coronary angiography orquidea ws no significant coronary artery disease. I was asked to see her for a very preliminary discussion about potential therapy. PAST MEDICAL HISTORY: Remarkable for hypothyroidism, dyslipidemia, hiatal hernia, breast cancer, and diverticulosis. SOCIAL HISTORY: She is a former smoker who is . PHYSICAL EXAMINATION: GENERAL: She is a pleasant woman who is supine in her bed in no obvious distr ess. CARDIOVASCULAR: Regular rate and rhythm. RESPIRATORY: She is breathing comfortably at rest. SKIN: Warm and dry. EXTREMITIES: Warm and reasonably well perfused. NEUROLOGIC: She is alert an d oriented. IMAGING: Review of her echocardiogram reveals markedly diminished left ventricular function with eje ction fraction estimated at 20%. There is moderate tricuspid regurgitation. There is severe mitral regurgitation with type 3 functional classification of her mitral valve, indicating restricted leafle t motion in both anterior and posterior leaflets. Additionally, noted the posterior leaflet is somew hat calcified at the base. There is a small segment that may prolapse, but the primary mechanism her e appears to be restriction based on the dilated left ventricle. Coronary angiography reveals no significant coronary disease. IMPRESSION: Severe mitral regurgitation in the setting of low ejection fraction. It is likely that the ejection fraction of 20% overstates her function in that the ventricle is largely unloaded at thi s time due to her severe mitral regurgitation. We had a brief discussion of therapeutic options, inc luding medical therapy; transcatheter solutions, including MitraClip, as well as surgical options. RECOMMENDATIONS: Obviously, aggressive medical therapy for her congestive heart failure is in progre ss. I think she will need to be restudied and transesophageal echo images obtained if interventional procedures are planned. I appreciate the opportunity to see her, and I did let the family know that all options are on the table, but these will largely be guided by her tolerance of medical therapy a nd subsequent findings on echocardiography, as well as her clinical status. /[id number]/MODL
[2018-12-09] MEDS ORDERED: FUROSEMIDE 20 MG TAB PO SCH (09:00)
--- NOTE | 2018-12-11 12:44 | GCON ---
[f rep st] CONSULTATION CARDIOLOGY CONSULT DATE OF CONSULTATION: 12/05/2018 REASON FOR CONSULTATION: Evaluate a woman with worsening shortness of breath, orthopnea, and weight gain, with abnormal echocardiogram demonstrating new systolic dysfunction and severe mitral regurgita tion. HISTORY OF PRESENT ILLNESS: The patient is a 78-year-old woman with no previous cardiac problems. S he did have breast cancer in 2009, treated with radiation and some type of chemotherapy; she is not c lear what type. Other past medical history is a carpal tunnel surgery, hyperlipidemia, hypothyroidis m, and sciatica. For the last 3 to 4 months, she has not felt well with worsening dyspnea on exertio n and 2 to 3-pillow orthopnea. She was started on Lasix by her embedded systems designer in the last week and has lo st some weight, but is still short of breath at rest. She denies chest pain, syncope, or palpitation s. She slept on 3 pillows last night with some orthopnea. An echocardiogram done today as an outpat ient demonstrates an LVEF of 20% to 25% with moderate to severe mitral regurgitation and no mitral va lve prolapse. PAST MEDICAL HISTORY: New onset heart failure as per HPI, previous breast cancer in 2009, carpal annie adair syndrome, hyperlipidemia, hypothyroidism, and sciatica pain. PAST SURGICAL HISTORY: Lumpectomy and appendectomy. CURRENT MEDICATIONS: Aspirin 81 mg per day, Lipitor 20 mg per day, potassium chloride 20 mEq per day , and Lasix 20 mg per day. ALLERGIES: No known drug allergies. SOCIAL HISTORY: The patient is . She does not smoke cigarettes and has minimal alcohol intak e. FAMILY HISTORY: Positive for premature coronary artery disease. REVIEW OF SYSTEMS: The patient reports no recent fevers or chills. She has no TIA or CVA symptoms. She reports no GI bleed symptoms such as hematemesis, melena, or bright red blood per rectum. Rest of 10-point review of systems is negative. PHYSICAL EXAM: VITAL SIGNS: Afebrile, pulse 83 and regular, blood pressure 114/66, and respirations 20. GENERAL: A normal-appearing woman in no acute distress without chest pain or using accessory r espiratory muscles. EYES: Pupils equal and reactive to light. ENT: Oral mucosa with no cyanosis. NECK: Jugular venous pressure to 8 cm. Carotid pulses 2+ bilaterally with no obvious bruits. LUNG S: Clear to auscultation bilaterally without rales, rhonchi, or wheezing. HEART: Normal PMI. Regu lar rate and rhythm with a 1/6 nonradiating systolic murmur and no S3. ABDOMEN: Soft and nontender. No guarding or rebound. No obvious hepatosplenomegaly. EXTREMITIES: 2+ peripheral pulses, includi ng femoral and pedal pulses. No edema noted. MUSCULOSKELETAL: No scoliosis. NEUROLOGICAL: Normal affect and mood. NECK: No nuchal rigidity. SKIN: No bleeding or cyanosis. IMPRESSION: A 78-year-old woman with symptoms of decompensated heart failure and moderate volume ove rload with class 3 [employer] symptoms. Echocardiogram today shows a left ventricula r ejection fraction of 22% with moderate to severe mitral regurgitation. RECOMMENDATIONS: 1. Would admit to the hospital to compensate her heart failure. Would start on Lasix 40 mg IV q.12 h. 2. Would start on lisinopril 10 mg per day. 3. Would start on carvedilol 3.125 mg twice daily. 4. Would start on Aldactone 25 mg per day. 5. After several days of IV diuresis, would do a left and right heart catheterization to rule out ob structive coronary artery disease as the etiology of her heart failure. Would also try to find out i f she had any Adriamycin-based chemotherapy for her breast cancer 9 years ago. 6. Would not send her for mitral valve surgery currently. I am hopeful with addition of CHF medicin osman that a re-echocardiogram in 3 to 4 months will show improvement in LV function and decrease in sev erity of her mitral regurgitation. /[id number]/MODL
== END 2018-12-08 18:20 | disposition home or self-care (01) | DRG 287 ==
LOC: F2W 16:20
PROVIDERS: ADMIT Internal Medicine; ATTEND Hospitalist
DX: I50.21 Acute systolic (congestive) heart failure (principal); I42.0 Dilated cardiomyopathy; I34.0 Nonrheumatic mitral (valve) insufficiency; E78.5 Hyperlipidemia, unspecified; E03.9 Hypothyroidism, unspecified; F32.9 Major depressive disorder, single episode, unspecified; K21.9 Gastro-esophageal reflux disease without esophagitis; Z85.3 Personal history of malignant neoplasm of breast; Z92.3 Personal history of irradiation; Z92.21 Personal history of antineoplastic chemotherapy
CPT/HCPCS: 84484-ER; 97161-GP; 97165-GO; C1760; J1644; J1650; J1940; J2250; J3010; Q9967